=== PATIENT | female | born 1975 | race Asian ===

== ENCOUNTER 2024-05-01 05:56 | Observation (INO) ==
[~2024-05-01 05:56] MED LIST: NS 0.45% 1000 ml BAG 1,000 ML IV SCH; Naloxone 0.4 mg VIAL 0.4 mg/ml 1 ml VIAL IV PRN
[2024-05-01] MEDS ORDERED: Lidocaine 1% w EPI 1:200,000 SDV 30 ML VIAL ONE (06:01)
[2024-05-01] MEDS ORDERED: ceFAZolin 1 GM ADVAN 1 GM ADDV.VIAL IVPB ONE (06:02)
[2024-05-01] MEDS ORDERED: Scopolamine 1 mg/72hr PATCH ONE (06:07)
[2024-05-01] MEDS ORDERED: Famotidine IV 10 MG/ML 2 ml VIAL (20 mg) ONE (06:08)
[2024-05-01] MEDS ORDERED: Chlorhexidine MOUTHWASH 0.12% 15 ML UDC ONE (06:08)
[2024-05-01] MEDS ORDERED: ceFAZolin 2 GM PREMIX 2 GM/50 ML BAG ONE (06:08)
[2024-05-01] MEDS: Scopolamine 1 mg/72hr PATCH TRANSDERM ONE (06:35)
[2024-05-01] MEDS: Famotidine IV 10 MG/ML 2 ml VIAL (20 mg) IV SLOW PU ONE (06:36)
[2024-05-01] MEDS ORDERED: Midazolam 2 mg/2 ml VIAL 1 mg/ml 2 ml VIAL (2 mg) ONE (07:02)
[2024-05-01] MEDS ORDERED: Rocuronium 50 mg VIAL 10 mg/ml 5 ml VIAL (50 mg) ONE ×2 (07:02→08:31)
[2024-05-01] MEDS ORDERED: fentaNYL 100 mcg/2 ml 50 MCG/ML VIAL ONE ×3 (07:02→09:37)
[2024-05-01] MEDS ORDERED: Ondansetron 4 mg VIAL 2 MG/ML 2 ml VIAL ONE ×2 (07:04→09:24)
[2024-05-01] MEDS ORDERED: Dexamethasone IV 4 MG/ML VIAL 1 ml VIAL ONE (07:04)
[2024-05-01] MEDS ORDERED: Propofol 10 MG/ML 20 ML BTL ONE (07:04)
[2024-05-01] MEDS ORDERED: Lidocaine 2% PF 5 ML VIAL ONE (07:04)
[2024-05-01] MEDS ORDERED: Morphine 2 MG/ML SYRINGE IV PRN (09:05)
[2024-05-01] MEDS ORDERED: Benzocaine/Menthol LOZ MT PRN (09:05)
[2024-05-01] MEDS ORDERED: Calcium Carb (TUMS) 500 mg CHEW TAB PO PRN (09:05)
[2024-05-01] MEDS ORDERED: Senna TAB 8.6 mg TAB PO PRN (09:05)
[2024-05-01] MEDS ORDERED: Phenol 1.4% Throat Spray BTL MT PRN (09:05)
[2024-05-01] MEDS ORDERED: Ondansetron 4 mg VIAL 2 MG/ML 2 ml VIAL IV PRN (09:05)
[2024-05-01] MEDS ORDERED: Dextran 70/Hypromellose Tears Eye Drops 15 ml BTL (for Artificials Tears) BOTH EYES PRN (09:05)
[2024-05-01] MEDS: fentaNYL 100 mcg/2 ml 50 MCG/ML VIAL IV PRN (09:16)
[2024-05-01] MEDS: Ondansetron 4 mg VIAL 2 MG/ML 2 ml VIAL IV PRN (09:26)
[2024-05-01] MEDS ORDERED: Metoclopramide 5 MG/ML VIAL (10 mg) ONE (09:32)
[2024-05-01] MEDS: Metoclopramide 5 MG/ML VIAL (10 mg) IV PRN (09:35)
[2024-05-01 10:57] LABS: Rapid COVID-19 Molecular Undetected (Undetected)
[2024-05-01] MEDS: Lactated Ringers 1000 ml BAG 1,000 ML IV SCH ×2 (11:55→12:19)
[2024-05-01] MEDS: Acetaminophen IV 1 GM/100ML 1,000 MG/100 ML BAG IV ONE (11:56)
[2024-05-01] MEDS: Buffered Lidocaine 1% SYRIN 1 ml INTRADERM ONE (11:56)
== END 2024-05-02 11:40 | disposition home or self-care (01) ==
LOC: SSU 05:56 → OR 05:56
PROVIDERS: ADMIT Neurological Surgery; ATTEND Neurological Surgery